=== PATIENT | female | born 1980 | race Two or more races ===

== ENCOUNTER → 2016-12-14 | Outpatient (REF) | payer OTHER ==
[~2016-12-14] MED LIST: LEXA1TAB PO
== END ==
LOC: M LAB REF 16:32
PROVIDERS: ATTEND Family Medicine
DX: Z12.4 Encounter for screening for malignant neoplasm of cervix (principal)

== ENCOUNTER → 2017-01-09 | Outpatient (CLI) | payer OTHER ==
[2017-01-09 14:05] LABS: MEAN CORPUSCULAR HEMOGLOBIN 29.5 pg (27.0-33.0); MEAN CORPUSCULAR HGB CONC 33.2 g/dl (32.0-36.5); MEAN CORPUSCULAR VOLUME 88.8 fl (80.0-96.0); RED CELL DISTRIBUTION WIDTH 12.7 % (11.5-14.5); WHITE BLOOD COUNT 7.8 K/mm3 (4.0-10.0)
[2017-01-09 14:08] LABS: CONTROL LINE HCG INT CTR LINE PRESENT
[2017-01-09 14:12] LABS: ANION GAP 8 MEQ/L (8-16); BLOOD UREA NITROGEN 12 MG/DL (7-18); CALCIUM LEVEL 8.8 MG/DL (8.5-10.1); CARBON DIOXIDE LEVEL 24 MEQ/L (21-32); CHLORIDE LEVEL 108 MEQ/L (98-107); CREATININE FOR GFR 0.65 MG/DL (0.55-1.02); GLOMERULAR FILTRATION RATE > 60.0 (>60); GLUCOSE, FASTING 71 MG/DL (70-105); INR 0.96; POTASSIUM SERUM 4.8 MEQ/L (3.5-5.1); SODIUM LEVEL 140 MEQ/L (136-145)
== END ==
LOC: M SMT 11:48
PROVIDERS: ATTEND Nurse Practitioner Women's Health
DX: N13.2 Hydronephrosis with renal and ureteral calculous obstruction (principal)

== ENCOUNTER 2017-01-17 07:00 | Day surgery (SDC) | payer OTHER ==
[~2017-01-17] VITALS: Ht 170.2 cm; Wt 72.6 kg
[2017-01-17] MEDS ORDERED: LR 1,000 ML IV SCH ×2 (07:15→10:00)
[2017-01-17] MEDS ORDERED: CONRAY-60 60% 50ML VIAL (Q9961) As Ordered ONE (07:25)
[2017-01-17 08:07] LABS: CONTROL LINE UCG INT CTR LINE PRESENT
[2017-01-17] MEDS ORDERED: PROPOFOL 200 MG/20 ML VIAL As Ordered ONE ×2 (09:04→09:21)
[2017-01-17] MEDS ORDERED: LIDOCAINE 2% INJ 100 MG/5 ML SDV (FOR ANES.) As Ordered ONE (09:04)
[2017-01-17] MEDS ORDERED: MIDAZOLAM INJ 2 MG/2 ML VIAL (J2250) As Ordered ONE (09:04)
[2017-01-17] MEDS ORDERED: ePHEDrine SULFATE 25 MG/5 ML(5MG/ML) SYRINGE As Ordered ONE (09:04)
[2017-01-17] MEDS ORDERED: fentaNYL 250 MCG/5 ML INJECTION (J3010) As Ordered ONE (09:04)
[2017-01-17] MEDS ORDERED: PERCOCET 5MG/325MG TAB As Ordered ONE (09:48)
[2017-01-17] MEDS: PERCOCET 5MG/325MG TAB PO PRN ×2 (09:50→10:21)
[2017-01-17] MEDS ORDERED: fentaNYL 100 MCG/2 ML INJECTION (J3010) IV PRN (10:00)
[2017-01-17] MEDS ORDERED: oxyBUTYnin 5 MG TAB PO PRN (10:00)
[2017-01-17] MEDS ORDERED: ONDANSETRON 4MG/2ML VIAL (J2405) IV PRN (10:00)
[2017-01-17] MEDS ORDERED: PERCOCET 5MG/325MG TAB PO PRN ×2 (10:00)
[2017-01-17] MEDS ORDERED: MORPHINE 2 MG/ML 1ML SYRINGE IV PRN (10:00)
[2017-01-17] MEDS ORDERED: METOCLOPRAMIDE INJ 10MG/2ML VIAL (J2765) IV PRN (10:00)
--- NOTE | 2017-01-17 10:12 | REP ---
Retrograde pyelogram: Three views. History: Left ureteral and renal stones. Findings: A sequence of three last image hold fluoroscopic spot radiographs of the left abdomen document left ureteral cannulation, guidewire insertion, contrast injection, and double pigtail ureteral stent placement. 10 seconds of fluoroscopy time is reported. Signed by Thor Stark MD 01/17/2017 02:35 P
[2017-01-17 10:21] VITALS: BP 122/76
--- NOTE | 2017-01-17 10:43 | RO ---
DATE OF PROCEDURE: 01/17/2017 PREPROCEDURE DIAGNOSIS: Left kidney and ureteral stones. POSTPROCEDURE DIAGNOSIS: Left kidney and ureteral stones. PROCEDURE: Cystoscopy, left ureteroscopy with basket extraction of stones, left retrograde pyelogram with intraoperative interpretation of images, left ureteral stent placement. SURGEON: Dr. Galindo Vanessa MATE FIRST: None. ANESTHESIA: General. OPERATIVE INDICATIONS: This is a 36-year-old female who was found to have an obstructing left ureteral stone as well as a left kidney stone. She was brought to the operating room today for the above listed procedures. DESCRIPTION OF PROCEDURE: The patient was brought to the operating room and general anesthesia was induced. Prophylactic antibiotics were infused. She was then placed in dorsal lithotomy position and prepped and draped in the usual sterile fashion. A rigid cystoscope was inserted into the urethral meatus and advanced to the bladder. A guidewire was then advanced up the left collecting system. I then went up the left collecting system alongside the wire with a short semi-rigid ureteroscope. In the distal left ureter, two stones were seen. Both of these stones were removed with a basket. I went into the more proximal ureter with the short semi-rigid ureteroscope and the ureter was dilated with no additional stones seen. I then advanced a ureteral access sheath up the left collecting system and then went into the access sheath with a flexible ureteroscope. The kidney was thoroughly examined and no stones were seen within the kidney. I then shot a retrograde pyelogram that was notable for mild hydronephrosis with no extravasation. I then withdrew the ureteroscope along with the access sheath and no additional stones were seen within the ureter. At this point, the wire was utilized to advance a 6 [place] x 22-32 cm JJ ureteral stent up into the left collecting system. The wire was then removed and there were adequate curls of the stent in the left renal pelvis and in the bladder. The bladder was then emptied of all fluid and this marked the conclusion of the procedure. The patient was then taken out of the dorsal lithotomy position, awakened from anesthesia and transported to the recovery room in stable condition. Estimated blood loss: 0 mL. Complications: None. Specimen: Kidney stones. Plan: The patient will follow up in the clinic in a few weeks for stent removal. DARLINE
== END 2017-01-17 11:01 | disposition home or self-care (01) ==
LOC: M SDC 07:00
PROVIDERS: ATTEND Urology
DX: N20.2 Calculus of kidney with calculus of ureter (principal); K58.9 Irritable bowel syndrome, unspecified; F17.210 Nicotine dependence, cigarettes, uncomplicated; Z79.899 Other long term (current) drug therapy; F41.9 Anxiety disorder, unspecified
CPT/HCPCS: 52332; 52352; 74420; 82360; 84703; 88300; C1769; C1894; C2617

== ENCOUNTER → 2017-06-18 | Outpatient (REF) | payer OTHER ==
[2017-06-18 19:25] LABS: ERYTHROCYTE SEDIMENTATION RATE 2 mm/hr (0-20)
[2017-06-18 19:43] LABS: IMMUNOGLOBULIN G 1060 MG/DL (681-1648); IMMUNOGLOBULIN M 64.2 MG/DL (40-230)
[2017-06-19 11:42] LABS: HIV 1&2 SCREEN CENTAUR NEGATIVE (NEGATIVE)
== END ==
LOC: M SFHCPLAZ 13:41
DX: A04.71 Enterocolitis due to Clostridium difficile, recurrent (principal)

== ENCOUNTER 2017-11-29 11:30 | Day surgery (SDC) | payer OTHER ==
[2017-11-29] MEDS: FECAL MICROBIOTA PREPARATION 250 ML BTL (J3590) XX (10:45)
[2017-11-29] MEDS: NS 1,000 ML IV (11:45)
[2017-11-29] MEDS ORDERED: PROPOFOL 200 MG/20 ML VIAL As Ordered (12:51)
[2017-11-29] MEDS ORDERED: LIDOCAINE 2% INJ 100 MG/5 ML SDV (FOR ANES.) As Ordered (13:17)
== END 2017-11-29 15:14 | disposition home or self-care (01) ==
LOC: M OPP 15:14
DX: A04.71 Enterocolitis due to Clostridium difficile, recurrent (principal); K58.9 Irritable bowel syndrome, unspecified; F41.9 Anxiety disorder, unspecified; Z87.442 Personal history of urinary calculi; F17.210 Nicotine dependence, cigarettes, uncomplicated; Z79.899 Other long term (current) drug therapy; Z80.51 Family history of malignant neoplasm of kidney
CPT/HCPCS: 45380

== ENCOUNTER 2018-04-28 11:30 | Outpatient (CLI) | payer OTHER ==
[2018-04-30 09:13] LABS: FASTING LACTOSE 86 MG/DL
[2018-04-30 09:26] LABS: 1/4 HR LACTOSE 114 MG/DL
[2018-04-30 10:07] LABS: 1/2 HR LACTOSE 84 MG/DL
[2018-04-30 10:08] LABS: 1 HR LACTOSE 92 MG/DL
[2018-04-30 10:48] LABS: 1.5 HR LACTOSE 76 MG/DL
[2018-04-30 11:29] LABS: 2 HR LACTOSE 81 MG/DL
[2018-05-01 10:16] LABS: TISSUE TRANSGLUTAMINASE IgA <2 U/mL (0-3); UNITSIGA FOR GLIADIN IGA 3 units (0-19); UNITSIGG FOR GLIADIN IGG 4 units (0-19)
== END 2018-04-30 ==
LOC: M LAB 11:30
DX: K58.2 Mixed irritable bowel syndrome (principal)
CPT/HCPCS: 82951